=== PATIENT | female | born 1990 | race Caucasian/White ===

== ENCOUNTER 2017-01-05 13:26 | Emergency (ER) | payer OTHER | END 2017-01-05 14:34 | disposition home or self-care (01) | LOC: FER 13:26 | DX: O99.512 Diseases of the respiratory system complicating pregnancy, second trimester (principal); J32.2 Chronic ethmoidal sinusitis; Z91.013 Allergy to seafood; Z3A.21 21 weeks gestation of pregnancy | CPT/HCPCS: 99283 ==